=== PATIENT | male | born 1955 | race Caucasian/White ===

== ENCOUNTER 2022-07-12 06:44 | Day surgery (SDC) | payer OTHER ==
--- NOTE | 2022-07-09 13:39 | RAD REPORT ---
EXAM DESCRIPTION: RAD - Chest Pa And Lat (2 Views) - 07/09/2022 11:13 am CLINICAL HISTORY: PREOP Chest pain. COMPARISON: Chest Pa And Lat (2 Views) dated 08/02/2018; CHEST SINGLE VIEW dated 11/02/2009; ABDOMEN A CUTE SERIES dated 07/01/2007; Thorax Wo Con dated 08/10/2018; Thorax W/ Con dated 06/17/2021 FINDINGS: Prominent emphysema is present. Postsurgical changes right lung. The heart is normal in si ze. Sternotomy wires present. IMPRESSION: COPD.
[~2022-07-12 06:44] MED LIST: HEPA 1000U/500MLS 2,000 UNIT/1,000 ML BAG IV ONE; LIDOCAINE 1% 20 ML MDV ONE
[2022-07-12] MEDS ORDERED: NA CHLORIDE 0.9% 500 ML ONE (06:50)
[2022-07-12] MEDS ORDERED: FENTANYL CITR 100 MCG/2 ML ONE (07:03)
[2022-07-12] MEDS ORDERED: MIDAZOLAM HCL 2 MG/2 ML INJ ONE (07:03)
[2022-07-12] MEDS ORDERED: ATROPINE SULF 1 MG/10 ML SYR IV ONE (07:03)
[2022-07-12] MEDS ORDERED: HEPARIN 10,000 UNIT/10 ML VIAL IV ONE (07:03)
[2022-07-12] MEDS ORDERED: NITROGLYCERIN 100 MCG/ML SYR (for cath lab use only) IV ONE (07:05)
[2022-07-12] MEDS ORDERED: NITROGLYCERIN/D5W 25 MG/250 ML BTL IV ONE (07:06)
[2022-07-12] MEDS ORDERED: CLOPIDOGREL 75 MG TABLET ONE (07:15)
[2022-07-12] MEDS ORDERED: TICAGRELOR 90 MG TABLET PO ONE (07:15)
[2022-07-12] MEDS ORDERED: ASPIRIN 325 MG TAB ONE (07:15)
[2022-07-12] MEDS ORDERED: LIDOCAINE 1% 20 ML MDV ONE (07:48)
[2022-07-12 08:42] VITALS: TEMP 97
[2022-07-12 09:30] VITALS: O2SAT 97
[2022-07-12 09:46] VITALS: BP 110/55
--- NOTE | 2022-07-12 17:43 | EKG ---
Test Date: 2022-07-09 Test Time: 10:34:07 Extension Division Director: RAFAELA MEASUREMENT RESULTS: Intervals: Rate: 75 CA: 142 QRSD: 86 QT: 388 QTc: 433 [place]: P: 77 CA: 142 QRS: 81 T: 64 INTERPRETIVE STATEMENTS: Normal sinus rhythm Low voltage QRS Borderline ECG Compared to ECG 11/04/2009 05:32:44 Low QRS voltage now present Right-axis deviation no longer present ST (T wave) deviation no longer present Possible ischemia no longer present Electronically Signed On 07-12-22 17:37:26 CDT by Benedicto Townsend
--- NOTE | 2022-07-12 17:49 | OP ---
Date of Procedure: 07/12/2022 Surgeon: MARRY WILSON Procedures Performed: 1.Selective coronary angiogram with bypass graft study. 2.Left heart catheterization. Indication: Abnormal stress test. Access: The left femoral artery 6-Iranian closed with manual pressure. Complications: None. Bleeding: Less than 10 mL. Description Of Procedure: After risks, benefits, and alternatives were explained, the patient agreed to the procedure and signed informed consent. The patient was brought into the cardiac catheterizat ion laboratory, prepped and draped in the usual sterile fashion. Then, I accessed the left femoral a rtery using micropuncture kit, fluoroscopy, and ultrasound guidance, placed a 6-Iranian Perkins sheat h, took a 6-Iranian JL4 catheter into the aortic root, engaged left main and then exchanged for a 6-Fr ench JR4 catheter, engaged left main, SVG to RCA, SVG to OM and PARKER, and then the catheter was pushe d over the wire into the LV, measured LVEDP, pullback did not record any gradient. Then, the cathete r removed, sheath was removed. Manual pressure was applied with good hemostasis. Findings: 1.Left main is long with mild luminal irregularities. 2.LAD; proximal 80% and then becomes 80% to 90% in the mid segment. 3.Left circumflex; proximal 40%, mid 50% to 60% stenosis. 4.RCA; proximal SURVEY SUPERVISOR. Grafts: 1.Patent SVG graft to RCA. 2.Occluded SVG to OM. 3.Patent PARKER to LAD. 4.Elevated LVEDP at 50 mmHg. Conclusion: 1.Severe [place] coronary artery disease. 2.Patent PARKER to LAD and patent SVG to RCA and the OM does not need bypass. It has moderate disease . 3.Elevated LVEDP. Recommendation: Medical management. SR/MODL Voice ID: [id number] Report ID: [id number]
== END 2022-07-12 10:00 | disposition home or self-care (01) ==
LOC: CCL 06:44
PROVIDERS: ATTEND Internal Medicine
DX: I25.110 Atherosclerotic heart disease of native coronary artery with unstable angina pectoris (principal); I25.700 Atherosclerosis of coronary artery bypass graft(s), unspecified, with unstable angina pectoris; I25.82 Chronic total occlusion of coronary artery; I65.23 Occlusion and stenosis of bilateral carotid arteries; I10 Essential (primary) hypertension; E78.2 Mixed hyperlipidemia; I25.2 Old myocardial infarction; J44.9 Chronic obstructive pulmonary disease, unspecified; Z95.1 Presence of aortocoronary bypass graft; Z87.891 Personal history of nicotine dependence; Z79.899 Other long term (current) drug therapy; Z82.49 Family history of ischemic heart disease and other diseases of the circulatory system
CPT/HCPCS: 93005; 71046; 93459; 76937; C1893; C1760; Q9967; G0269; J2001 ×2; J2250; J3010; J7040; J0461

== ENCOUNTER 2024-03-13 11:02 | Day surgery (SDC) | payer OTHER ==
[2024-03-05 14:47] LABS: Absolute Basophils 0.1 K/uL (0-0.5); Absolute Eosinophils 0.3 K/uL (0-0.5); Absolute Lymphocytes (CBC) 2.5 K/uL (0.7-4.9); Absolute Monocytes 0.8 K/uL (0.1-1.3); Absolute Neutrophil 4.6 K/uL (1.8-8.0); Basophils % 0.7 % (0-1.3); Eosinophils % 3.4 % (0-4.4); Hematocrit 44.6 % (39.6-49.0); Hemoglobin 14.6 g/dL (13.6-17.9); Lymphocytes % 30.5 % (15.3-44.8); MCH 30.5 pg (27.0-35.0); MCHC 32.8 g/dL (32.0-36.0); MPV 8.2 fL (7.6-11.3); Monocytes % 9.8 % (3.3-12.3); Neutrophils % 55.6 % (41.7-73.7); Platelets 201 thou/uL (152-406); RBC Red Blood Cell Count 4.79 M/uL (4.33-5.43); Red Cell Distribution Width 13.4 % (12.1-15.2)
[2024-03-05 15:01] LABS: Anion Gap 7.4 mEq/L (5.0-15.0); Potassium 4.4 mEq/L (3.5-5.1)
[2024-03-05 15:08] LABS: PT Prothrombin Time 11.2 SECONDS (9.4-12.5)
--- NOTE | 2024-03-05 21:07 | RAD REPORT ---
EXAMINATION: TWO VIEW CHEST XR CLINICAL INDICATION: Male, 68 years old. [facility] Pre-op pending heart catheterization. Hypertension TECHNIQUE: 2 view radiographs of the chest were performed. COMPARISON: 07/09/2022 FINDINGS: The lungs are well inflated and clear. No pneumothorax or sizable effusion. The heart is normal in si ze. Mediastinal contours are unremarkable. IMPRESSION: No acute or significant abnormalities.
--- NOTE | 2024-03-06 08:52 | EKG ---
Test Date: 2024-03-05 Test Time: 15:29:08 Hat Trimmer: FRANKLIN MEASUREMENT RESULTS: Intervals: Rate: 75 [place]: 152 QRSD: 90 QT: 374 QTc: 417 [place]: P: 53 [place]: 152 QRS: 45 T: 48 INTERPRETIVE STATEMENTS: Normal sinus rhythm with sinus arrhythmia Low voltage QRS Borderline ECG Compared to ECG 07/09/2022 10:34:07 No significant changes Electronically Signed On 03-06-24 08:51:08 COP EXAMINER by Rogers Lambert
[2024-03-13 12:29] VITALS: TEMP 98
[2024-03-13] MEDS ORDERED: HEPARIN 10,000 UNIT/10 ML VIAL IV ONE (12:43)
[2024-03-13] MEDS ORDERED: LIDOCAINE 1% 20 ML MDV ONE (12:43)
[2024-03-13] MEDS ORDERED: VERAPAMIL HCL 10 MG/4 ML VIAL IV ONE (12:43)
[2024-03-13] MEDS ORDERED: ATROPINE SULF 1 MG/10 ML SYR IV ONE (12:43)
[2024-03-13] MEDS ORDERED: HEPA 1000U/500MLS 2,000 UNIT/1,000 ML BAG IV ONE (12:43)
[2024-03-13] MEDS ORDERED: MIDAZOLAM HCL 2 MG/2 ML INJ ONE (12:43)
[2024-03-13] MEDS ORDERED: TICAGRELOR 90 MG TABLET PO ONE (12:44)
[2024-03-13] MEDS ORDERED: CLOPIDOGREL 75 MG TABLET ONE (12:44)
[2024-03-13] MEDS ORDERED: HEPARIN 5000 UNIT/ML 1 ML VIAL ONE (12:44)
[2024-03-13] MEDS ORDERED: FENTANYL CITR 100 MCG/2 ML ONE (12:44)
[2024-03-13] MEDS ORDERED: ASPIRIN 325 MG TAB ONE (12:44)
[2024-03-13] MEDS: NA CHLORIDE 0.9% 500 ML ONE (13:58)
[2024-03-13 15:02] VITALS: O2SAT 99
[2024-03-13 15:32] VITALS: BP 152/73
--- NOTE | 2024-04-03 02:25 | OP ---
Date of Procedure: 03/13/2024 Surgeon: MARRY WILSON Procedures Performed: 1.Selective coronary angiogram with bypass graft study. 2.Left heart catheterization. 3.Peripheral angiogram with runoff. Indication: Chest pain with abnormal stress test. Access: Right common femoral artery 6-Samoan, closed with Mynx closure device. Complications: None. Bleeding: Less than 50 mL. Anesthesia: Total sedation time was 1 hour. Description Of Procedure: After risks, benefits, and alternatives were explained, the patient agreed to procedure and signed informed consent. The patient was brought into cardiac catheterization [facility], prepped and draped in usual sterile fashion. Then, I accessed right common femoral artery us ing micropuncture kit, ultrasound guidance, and fluoroscopy, placed a 6-Samoan Kershaw sheath, took 6-Samoan JL4 catheter into aortic root, engaged left main, took standard views, and exchanged for 6-F rench JR4 catheter, engaged the RCA across the aortic valve, measured the LVEDP, and pullback did not record any gradient. Then, I engaged the RCA graft which was patent and engaged the SVG graft to th e OM that was occluded and then engaged the PARKER to LAD and took standard views. Then, I removed the catheter before removing the sheath and then took a straight pigtail catheter in distal aorta, perfo rmed distal aortogram and runoff. Then, I removed the catheter and the sheath, and 6-Samoan Mynx geovanna sure device was used for closure with good hemostasis. Findings: Coronary angiogram: 1.Left main is normal. 2.LAD; proximal 80%, then mid 90%, then becomes FRUIT CHECKER. 3.Left circumflex; proximal 50%, mid 60% stenosis, becomes small. 4.RCA; it is a FRUIT CHECKER proximally. Bypass graft study: 1.Widely patent SVG to RCA. 2.Occluded SVG to OM. 3.Widely patent PARKER to LAD. 4.Elevated LVEDP 19 mmHg. Peripheral angiogram: 1.Distal aorta is widely patent. 2.Right lower extremity, the common iliac has 30% stenosis. External iliac is patent. Common femor al is patent. The profunda is patent and the SFA has proximal 40% and mid to distal 30% and then pop liteal artery is patent. Anterior tibial has proximal 80% stenosis. Tibial trunk is patent and the peroneal artery has mid 70% stenosis and posterior tibial is patent. 3.Left lower extremity, the left common iliac is normal and the left external iliac and femoral ty ry has luminal irregularities and the profunda is patent. SFA on the left has proximal 40% stenosis, mid 30% stenosis. Popliteal artery is patent and the anterior tibial has mid 80% stenosis. Tibial trunk is patent and the peroneal and posterior tibial has about diffuse 40% stenosis. Conclusions: 1.Severe multivessel [place] coronary artery disease with widely patent RCA. 2.Widely patent SVG to RCA and PARKER to LAD and occluded SVG to OM, however, the left circumflex sten osis has about 50% only, so it was left alone. 3.Severe bilateral peripheral vascular disease below the knee. Recommendation: Intervention on obnem-umu-[id number] vessels at [place]. /JOHNATHANL Voice ID: [id number] Report ID: [id number]
== END 2024-03-13 15:43 | disposition home or self-care (01) ==
LOC: CCL 11:02
PROVIDERS: ATTEND Internal Medicine
DX: I25.10 Atherosclerotic heart disease of native coronary artery without angina pectoris (principal); I25.810 Atherosclerosis of coronary artery bypass graft(s) without angina pectoris; I25.82 Chronic total occlusion of coronary artery; I70.223 Atherosclerosis of native arteries of extremities with rest pain, bilateral legs; I65.23 Occlusion and stenosis of bilateral carotid arteries; I25.5 Ischemic cardiomyopathy; I10 Essential (primary) hypertension; E78.5 Hyperlipidemia, unspecified; J44.9 Chronic obstructive pulmonary disease, unspecified; Z87.891 Personal history of nicotine dependence; Z79.82 Long term (current) use of aspirin; Z79.899 Other long term (current) drug therapy; Z82.49 Family history of ischemic heart disease and other diseases of the circulatory system
CPT/HCPCS: 36200; 36415; 71046; 75625; 75630; 75716; 76937; 80048; 85025; 85610; 85730; 93005; 93458; 93459; 99152; 99153; C1760; C1893; J0461; J1644; J2003; J2250; J3010; J7040